=== PATIENT | male | born 1970 | race Caucasian/White ===

== ENCOUNTER 2019-07-19 07:33 | Outpatient (CLI) | payer OTHER ==
[2019-07-19 10:10] LABS: BASOPHILS % (AUTO) 0.4 %; EOSINOPHILS # (AUTO) 0.3 10^3/uL (0.0-0.7); EOSINOPHILS % (AUTO) 5.6 %; HGB - HEMOGLOBIN 15.1 g/dL (14.0-18.0); LYMPHOCYTES # (AUTO) 1.3 10^3/uL (1.5-3.5); LYMPHOCYTES % (AUTO) 26.2 %; MEAN CORPUSCULAR HEMOGLOBIN 31.1 pg (27.0-31.0); MEAN CORPUSCULAR HGB CONC 32.5 g/dL (32.0-36.0); MEAN CORPUSCULAR VOLUME 95.5 fL (80.0-94.0); MEAN PLATELET VOLUME 12.3 fL (7.4-11.4); MONOCYTES # (AUTO) 0.5 10^3/uL (0.0-1.0); NEUTROPHILS # (AUTO) 2.8 10^3/uL (1.5-6.6); NEUTROPHILS % (AUTO) 57.6 %; PLT - PLATELET COUNT 146 10^3/uL (130-450); RED BLOOD COUNT 4.86 10^6/uL (4.70-6.10); RED CELL DISTRIBUTION WIDTH 12.9 % (12.0-15.0); WHITE BLOOD COUNT 4.8 x10^3/uL (4.8-10.8)
[2019-07-19 10:28] LABS: ALBUMIN 4.1 g/dL (3.2-5.5); ALBUMIN/GLOBULIN RATIO 1.5 (1.0-2.2); ALKALINE PHOSPHATASE 37 IU/L (42-121); ALT ALANINE AMINOTRANSFERASE 25 IU/L (10-60); AST ASPARTATE AMINOTRANSFERASE 22 IU/L (10-42); BUN - BLOOD UREA NITROGEN 19 mg/dL (6-20); CALCIUM 8.9 mg/dL (8.5-10.3); CARBON DIOXIDE - CO2 26 mmol/L (21-32); CHLORIDE 106 mmol/L (101-111); CHOL/HDL RATIO 4.4 (<5.0); CHOLESTEROL 179 mg/dL; CREATININE 0.9 mg/dL (0.6-1.2); GFR - MDRD 90 (>89); GLUCOSE 96 mg/dL (70-100); HDL CHOLESTEROL 41 mg/dL; LDL CHOLESTEROL,CALCULATED 118 mg/dL; LDL/HDL RATIO 2.9 (<3.6); SODIUM 142 mmol/L (135-145); TOTAL PROTEIN 6.9 g/dL (6.7-8.2); VLDL CHOLESTEROL 20 mg/dL
== END 2019-07-19 07:34 | disposition home or self-care (01) ==
LOC: LAB.S 07:33
PROVIDERS: ATTEND Physician Assistant Medical
DX: Z13.228 Encounter for screening for other metabolic disorders (principal); Z13.0 Encounter for screening for diseases of the blood and blood-forming organs and certain disorders involving the immune mechanism; Z13.220 Encounter for screening for lipoid disorders
CPT/HCPCS: 36415; 80053; 80061; 83721; 85025

== ENCOUNTER 2020-03-01 13:19 | Outpatient (CLI) | payer OTHER | END 2020-03-01 13:20 | disposition home or self-care (01) | LOC: COV 13:19 | PROVIDERS: ATTEND Family Medicine | DX: Z20.828 Contact with and (suspected) exposure to other viral communicable diseases (principal) ==

== ENCOUNTER 2020-09-13 10:26 | Emergency (ER) | payer OTHER ==
[2020-09-13 10:38] VITALS: BP 157/81
--- NOTE | 2020-09-13 11:30 | XRAY Report ---
PROCEDURE: Finger(s) LT INDICATIONS: trauma/crush injury TECHNIQUE: AP hand, 3 views of the fourth finger(s) acquired. COMPARISON: None FINDINGS: Bones: No dislocations. No suspicious bony lesions. There is a soft tissue and osseous injury invo lving the distal aspect of the fourth digit, where a tuft fracture is diagonal, and there is a small fracture fragment or foreign body medial to the midshaft of the fourth distal phalanx. Soft tissue di sruption in this area is appreciable, and us a open fracture is presumed to be present. Soft tissues: No suspicious soft tissue calcifications. IMPRESSION: Presumed open fracture distal tuft fourth digit, with a small 1.5 x 2 mm foreign body or bone fragmen t in the soft tissues medially in this area, which is presumably evidence of deep laceration. The dimas nt space appears intact. No fracture is seen beyond the tuft more proximally. Reviewed by: Willie Miranda MD on 09/13/2020 10:28 AM [facility] Approved by: Willie Miranda MD on 09/13/2020 10:28 AM [facility] Station ID: [id number]
--- NOTE | 2020-09-13 11:58 | ED Physician Documentation ---
PD HPI UPPER EXT INJURY - Stated complaint Stated Complaint: LEFT HAND INJURY - Chief complaint Chief Complaint: Trauma Ext - History obtained from History obtained from: Patient - History of Present Illness Location: Left, Finger (ring fingertip) Type of injury: Crush (caught in clamp at work, with nail partial avulsion, blood under it, lac near sides of nailbed and around to palmar side, No FB and only mild ongoing bleeding.) Review of Systems Constitutional: denies: Fever, Chills Nose: denies: Rhinorrhea / runny nose, Congestion Throat: denies: Sore throat Respiratory: denies: Cough GI: denies: Vomiting, Diarrhea Skin: denies: Rash PD PAST MEDICAL HISTORY - Past Medical History Past Medical History: No - Present Medications Home Medications: Ambulatory Orders Medication Instructions Recorded Confirmed HYDROcod/ACETAM 5/325 [[place] 5/325] 1 ea PO Q6H PRN #15 tablet 09/13/20 Ibuprofen [Motrin] 600 mg PO TID PRN #25 tab 09/13/20 - Allergies Allergies/Adverse Reactions: Allergies Allergy/AdvReac Type Severity Reaction Status Date / Time No Known Drug Allergies Allergy Verified 09/13/20 10:38 PD ED PE NORMAL - Vitals Vital signs reviewed: Yes - General General: Alert and oriented X 3, No acute distress, Well developed/nourished - Derm Derm: Normal color, Warm and dry, No rash - Neuro Neuro: Alert and oriented X 3, No motor deficit, No sensory deficit Results - Vitals Vitals: Vital Signs - 24 hr 09/13/20 10:33 Temperature 36.4 C L Heart Rate 73 Respiratory 16 Rate Blood Pressure 157/81 H O2 Saturation 97 Oxygen O2 Source Room air - Rads (name of study) left ring finger Radiology: Prelim report reviewed (tuft fracture. No fracture near joint. ), See rad report Procedures - Laceration (location) left finger tip Length in cm: 2 (lac each side of nailbed and around ulnar side to palmar fat pad. No FB. ) Wound type: Stellate, Into subcut fat, Clean. No: Exposure of bone Neurovascular status: Sensory intact, Motor intact Tendon involvement: Tendon intact Anesthesia: Lidocaine 2% (digital block with good effect) Wound preparation: Wound explored, To the base, debridement of wound edges (traumatic laceration/avulsion), Other (blood under nail and it is loose distally. Nychial fold is intact.) Skin layer closure: Nylon, Interrupted, Size #-0 - enter number (4) Other: Patient tolerated well, No complications, Neurovascular intact, Dressing applied, Tetanus UTD PD MEDICAL DECISION MAKING - ED course Complexity details: reviewed results, considered differential (fingernail partial avulsion and lac around tip of finger. Not really exposing the bone. There is tuft fracture and finger lac, but I don't see that the lac goes to the bone, so will call it "closed" fracture. ), d/w patient Departure - Departure Disposition: 01 Home, Self Care Clinical Impression: Closed fracture of tuft of distal phalanx of finger Finger laceration Qualifiers: Encounter type: initial encounter Finger: ring finger Damage to nail status: with damage Foreign body presence: without foreign body Laterality: left Qualifi ed Code(s): S61.315A - Laceration without foreign body of left ring finger with damage to nail, initial encounter Condition: Stable Record reviewed to determine appropriate education?: Yes Instructions: ED Laceration Hand Follow-Up: Lalo Casiano MD [Provider Admit Priv/Credential] - Prescriptions: Ibuprofen [Motrin] 600 mg PO TID PRN #25 tab PRN Reason: Pain HYDROcod/ACETAM 5/325 [[place] 5/325] 1 ea PO Q6H PRN #15 tablet PRN Reason: Pain Comments: It is okay to wash and shower. Clean off the wound twice a day with soap and water, or peroxide and water. Apply some antibiotic ointment to it to keep it moist. Also to watch for signs of infection such as purulence, redness or increasing pain. Return to your primary care or the ER at the specified time for suture removal. Suture removal 10 to 14 days. Ibuprofen 3 times a day with food initially. Add Tylenol or hydrocodone as needed for pain. The laceration part of the wound should heal over the next week or 2. The small chip fracture at the end of the finger will take about a month before its not tender. Forms: Activity restrictions Discharge Date/Time: 09/13/20 14:20
[2020-09-13] MEDS ORDERED: IBUPROFEN 600 MG TABLET PO STA (12:17)
[2020-09-13] MEDS ORDERED: ACETAMINOPHEN 325 MG TABLET PO STA (12:17)
[2020-09-13] MEDS ORDERED: LIDOCAINE-MPF 2% 5 ML VIAL SUBQ STA (12:17)
[2020-09-13] MEDS ORDERED: BACITRACIN ZINC OINT 1 PACKET TOP STA (13:49)
== END 2020-09-13 14:20 | disposition home or self-care (01) ==
LOC: ED 10:26
DX: S62.665A Nondisplaced fracture of distal phalanx of left ring finger, initial encounter for closed fracture (principal); S61.315A Laceration without foreign body of left ring finger with damage to nail, initial encounter; W23.0XXA Caught, crushed, jammed, or pinched between moving objects, initial encounter; Y99.0 Civilian activity done for income or pay
CPT/HCPCS: 12001; 73140; 99283; A9270